=== PATIENT | male | born 1975 | race American Indian/Alaskan Native ===

== ENCOUNTER 2020-03-23 01:51 | Emergency (ER) | payer MEDICAID, OTHER ==
[2020-03-23 02:01] VITALS: BP 129/92; PULSE 74
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
[2020-03-23] MEDS: Diphtheria,Pertussis(Acell),Tetanus Vaccine 0.5 ML Syringe IM ONE (03:12)
== END 2020-03-23 03:41 | disposition home or self-care (01) ==
LOC: DL.ED 01:51
DX: S06.0X1A Concussion with loss of consciousness of 30 minutes or less, initial encounter (principal); S02.832A Fracture of medial orbital wall, left side, initial encounter for closed fracture; S01.312A Laceration without foreign body of left ear, initial encounter; F17.200 Nicotine dependence, unspecified, uncomplicated; Z88.5 Allergy status to narcotic agent; Z23 Encounter for immunization; Y09 Assault by unspecified means
CPT/HCPCS: 12011; 70450; 70486; 90471; 90715; 99284; 99285-25

== ENCOUNTER 2023-08-30 16:49 | Emergency (ER) | payer SELFPAY ==
[2023-08-30 17:29] VITALS: BP 164/103; PULSE 75
== END 2023-08-30 17:37 | disposition left against medical advice (07) ==
LOC: DL.ED 16:49
DX: Z53.21 Procedure and treatment not carried out due to patient leaving prior to being seen by health care provider (principal)